=== PATIENT | female | born 1965 | race Caucasian/White ===

== ENCOUNTER → 2016-11-16 | Day surgery (SDC) | payer BC ==
[2016-11-16] VITALS (7 sets, daily range): BP systolic 103–113; BP diastolic 59–77
[~2016-11-16] VITALS: Ht 152.4 cm; Wt 52.2 kg
[~2016-11-16] MED LIST: FISH OIL CAP1000 MG ORAL; GINKGO BILOBA60 M1 PO; GLUCOSAMIN-CHO1 EAC1 PO; Hydromorphone 0.5mg/0.5ml inj IVP PRN; Ketorolac 30mg Inj IV PRN; Lidocaine 1% MPF 10mg/ml 5ml ONE; MAGNESIUM500 MG PO; Norco 5mg/325mg tab ORAL PRN; Propofol 10mg/ml 20ml IV ONE; TURMERIC500 MG PO; VITAMIN B122500 MCG PO; fentaNYL 100 mcg/2 mL IV PRN
--- NOTE | 2016-11-16 08:11 | Short Stay Surgery H&P ---
History of Present Illness History of Present Illness Chief Complaint see paper H&P HPI Neris Campbell is a 51 year old female who was admitted on for Colon Screening, Anemia Patient History Allergies: Coded Allergies: CODEINE (Verified Adverse Reaction, Severe, 11/15/16) NAUSEA PAST MEDICAL HISTORY: Past Surgeries: Social History: Medication History Scheduled Fish Oil (Fish Oil 1,000 mg Capsule), 1,000 MG ORAL DAILY, (Reported) Ginkgo Biloba (Ginkgo Biloba), 60 MG PO DAILY, (Reported) Gluc/Wilfredo-Msm#2/C/D3/Bjorn/Born (Xtvidjmvvc-Ekbnmhyekfd-Bpz Tab), 1 EACH PO DAILY , (Reported) Magnesium Oxide (Magnesium), 500 MG PO DA, (Reported) Turmeric Root Extract (Turmeric), 300 MG PO DAILY, (Reported) Miscellaneous Medications Cyanocobalamin (Vitamin B-12) (Vitamin B12), 2,500 MCG PO, (Reported) Physical Exam Vital Signs Last Vital Signs Date Time Temp Pulse Resp B/P Pulse Ox O2 Delivery O2 Flow Rate FiO2 11/16/16 07:27 97.8 67 18 110/59 98 Room Air Plan Attestation Are the patient's medical conditions optimized for surgery? CHRISSIE VILLELA Nov 16, 2016 08:11
--- NOTE | 2016-11-16 08:11 | Pre-Procedure Note/Attestation ---
Pre-Procedure Note/Attestation Complete Prior to Procedure Planned Procedure: not applicable Procedure Narrative: EGD/Colon Indications for Procedure Pre-Operative Diagnosis: abd pain, anemia, diarrhea, incontinence Attestation I attest that I discussed the nature of the procedure; its benefits; risks and complications; and alternatives (and the risks and benefits of such alternatives ), prior to the procedure, with the patient (or the patient's legal sales support representative). I attest that, if there was a reasonable possibility of needing a blood transfusion, the patient (or the patient's legal sales support representative) was given the [facility] standardized written summary, pursuant to the Bradford Prichard Blood Safety Act ([place] Health and Safety Code # 1645, as amended). I attest that I re-evaluated the patient just prior to the surgery and that there has been no change in the patient's H&P, except as documented below: CHRISSIE VILLELA Nov 16, 2016 08:11
--- NOTE | 2016-11-16 08:32 | Anethesia Preoperative Eval ---
Anesthesia Pre-op PMH/ROS General Date of Evaluation: Nov 16, 2016 Time of Evaluation: 08:00 Anesthesiologist: daphne ASA Score: ASA 2 Mallampati Score Class I : Soft palate, uvula, fauces, pillars visible Class II: Soft palate, uvula, fauces visible Class III: Soft palate, base of uvula visible Class IV: Only hard plate visible Mallampati Classification: Class II Surgeon: Daphne Diagnosis: Screening Surgical Procedure: EGD/Colon Anesthesia History: none Family History: no anesthesia problems Allergies: Coded Allergies: CODEINE (Verified Adverse Reaction, Severe, 11/15/16) NAUSEA Medications: see eMAR Past Medical History Cardiovascular: Denies: CAD, HTN, [place], arrhythmia, other, valve dz Pulmonary: Denies: COPD, [place], asthma, other Gastrointestinal/Genitourinary: Denies: CRI, ESRD, GERD, other Neurologic/Psychiatric: Denies: CVA, TIA, dementia, depression/anxiety, other Endocrine: Denies: DM, hypothyroidism, other, steroids HEENT: Denies: PO[place] IRA (L), PO[place] IRA (R), cataract (L), cataract (R), glaucoma, other Hematology/Immune: Denies: DVT, anemia, bleeding disorder, other Musculoskeletal/Integumentary: Denies: DDD, DJD, OA, RA, edema, other Anesthesia Pre-op Phys. Exam Physician Exam Last Vital Signs Date Time Temp Pulse Resp B/P Pulse Ox O2 Delivery O2 Flow Rate FiO2 11/16/16 07:27 97.8 67 18 110/59 98 Room Air Airway Exam Mallampati Score: Class II MO: full ROM: full ADRIANE BUTTS M.D. Nov 16, 2016 08:32
--- NOTE | 2016-11-16 08:57 | Endoscopy Procedure Note ---
Endoscopy Procedure Note Indication for Procedure: anemia, diarrhea Procedures Performed: EGD, colonoscopy Operative Findings/Diagnosis: ? mild rectal edema/erthema Specimen: yes Pt Tolerated Procedure Well: Yes Estimated Blood Loss: none Anesthesia: MAC Medication Given: see anesthesia record Implant(s) used?: No 50 yrs or older w/o bx or poly: Not Applicable 10yrs. F/U not recommended: Not Applicable If not recommended, why?: CHRISSIE VILLELA Nov 16, 2016 08:57
--- NOTE | 2016-11-16 08:58 | Brief Operative Note ---
Immediate Post Operative Note Operative Note Chief Complaint: anemia, diarrhea Pre-op Diagnosis: abd pain, anemia, diarrhea, incontinence Procedure: EGD b, Colon B Post-op Diagnosis: ? mild rectal erythema/edema - martínez bx Surgeon: patricia Anesthesiologist: Shayy Anesthesia: MAC, moderate sedation Specimen: yes Complications: none Condition: stable Estimated Blood Loss: none Drains: none Implant(s) used?: No CHRISSIE VILLELA Nov 16, 2016 08:58
--- NOTE | 2016-11-16 09:02 | Immediate Post-Op Evaluation ---
Immediate Post-Op Evalulation Immediate Post-Op Evalulation Procedure: EGD/Colonmoscopy Date of Evaluation: Nov 16, 2016 Time of Evaluation: 09:02 IV Fluids: 500 Blood Products: 0 Estimated Blood Loss: 0 Urinary Output: 0 Blood Pressure Systolic: 120 Blood Pressure Diastolic: 75 Pulse Rate: 80 Respiratory Rate: 20 O2 Sat by Pulse Oximetry: 99 Temperature (Fahrenheit): 98 Pain Score (1-10): 1 Nausea: No Vomiting: No Complications NA Patient Status: awake Hydration Status: adequate Given Within 1 Hr of Incision: ADRIANE Mantilla M.D. Nov 16, 2016 09:02
--- NOTE | 2016-11-16 09:03 | 48 Hour Post Anesthesia Eval ---
Post Anesthesia Evaluation Procedure: EGD/Colonmoscopy Date of Evaluation: Nov 16, 2016 Time of Evaluation: 10:05 Blood Pressure Systolic: 120 0: 70 Pulse Rate: 80 Respiratory Rate: 20 Temperature (Fahrenheit): 98 O2 Sat by Pulse Oximetry: 99 Airway: patent Nausea: No Vomiting: No Pain Intensity: 1 Hydration Status: adequate Cardiopulmonary Status: stable Mental Status/LOC: patient returned to baseline Follow-up Care/Observations: na Post-Anesthesia Complications: na Follow-up care needed: N/A ADRIANE BUTTS M.D. Nov 16, 2016 09:03
--- NOTE | 2016-11-17 03:37 | Operative Note - Dictated ---
DATE OF OPERATION: 11/16/2016 DATE OF PROCEDURE: 11/16/2016. PROCEDURE: Upper gastrointestinal endoscopy with biopsy as well as colonoscopy with biopsy. SURGEON: Avel Lam M.D. ANESTHESIA: Please see the separate anesthesiologist notes for details. PRE-ENDOSCOPIC DIAGNOSES: 1. Iron deficiency anemia. 2. Screening colonoscopy. 3. Irregular bowel habits. POST-ENDOSCOPIC DIAGNOSES: 1. Normal upper endoscopy, status post biopsy of the duodenum and the antrum. 2. Mild loss of mucosal vascularity of the rectum of unclear significance, status post random biopsy of the rectum. 3. Otherwise normal colonoscopy, status post random biopsy of the left colon. 4. Normal terminal ileum. PROCEDURE: The procedure, its risks, indications, alternatives, and possible complications were explained to the patient and informed consent was obtained. The patient was then sedated and diagnostic upper endoscope was introduced through the oropharynx and advanced to the duodenum. The endoscope was gradually withdrawn. The mucosa examined carefully. The colonoscope was introduced in the rectum and advanced to the terminal ileum without difficulty. The mucosa examined carefully. The examination was notable for above findings. The colonoscope was removed. The patient was sent to recovery in good condition. COMPLICATIONS: None. RECOMMENDATIONS: 1. Follow up biopsy results. 2. Outpatient followup. Thank you for asking me to participate in the care of this patient. Avel Lam M.D. DR: DOREEN JOB#: [id number] CC: Dawson Millan M.D.; Fax#: [phone] Lam M.D. ; Fax#: [phone]
== END | disposition home or self-care (01) ==
LOC: GAS 07:03
DX: Z12.11 Encounter for screening for malignant neoplasm of colon (principal); R19.4 Change in bowel habit; D50.9 Iron deficiency anemia, unspecified; K29.50 Unspecified chronic gastritis without bleeding; E78.00 Pure hypercholesterolemia, unspecified; Z88.5 Allergy status to narcotic agent
CPT/HCPCS: 43239; 45380; J2704; 94003; 94150

== ENCOUNTER 2017-10-12 14:45 | Outpatient (CLI) | payer BC ==
[2017-10-12 14:20] VITALS: BP 126/68
[~2017-10-12 14:45] MED LIST changes: -Hydromorphone 0.5mg/0.5ml inj IVP PRN; -Ketorolac 30mg Inj IV PRN; -Lidocaine 1% MPF 10mg/ml 5ml ONE; -Norco 5mg/325mg tab ORAL PRN; -Propofol 10mg/ml 20ml IV ONE; -fentaNYL 100 mcg/2 mL IV PRN
--- NOTE | 2017-10-12 15:46 | GI Initial Consult Note ---
History of Present Illness General Date patient seen: Oct 12, 2017 Time patient seen: 15:35 Referring physician: RON Reason for Consultation: ABDOMINAL PAIN Present Illness HPI 52 year old female referred by Dr. Lieberman for evaluation of abdominal pain x 1 week described as tight, stabbing with no burning sensation. Epigastric tenderness and pain. In addition, c/o of diarrhea with occasional incontinence 2-3x daily. She has decreased appetite but contributes it to her personal problems and has difficulty swallowing solid food. The patient had an EGD/ Colonoscopy this past October, see report below. DATE OF PROCEDURE: 11/16/2016. PROCEDURE: Upper gastrointestinal endoscopy with biopsy as well as colonoscopy with biopsy. SURGEON: Avel Lam M.D. POST-ENDOSCOPIC DIAGNOSES: 1. Normal upper endoscopy, status post biopsy of the duodenum and the antrum. 2. Mild loss of mucosal vascularity of the rectum of unclear significance, status post random biopsy of the rectum. 3. Otherwise normal colonoscopy, status post random biopsy of the left colon. 4. Normal terminal ileum. Home Meds Reported Medications Gluc/Wilfredo-Msm#2/C/D3/Bjorn/Born ([id number] TAB) 1 Each Tablet, 1 EACH PO DAILY, TAB 11/16/16 Ginkgo Biloba (GINKGO BILOBA) 60 Mg Tablet, 60 MG PO DAILY, TAB 11/16/16 Turmeric Root Extract (TURMERIC) 500 Mg Capsule, 300 MG PO DAILY, CAP 11/16/16 Cyanocobalamin (Vitamin B-12) (Vitamin B12) 2,500 Mcg Tablet, 2500 MCG PO, TAB 11/15/16 Magnesium Oxide (MAGNESIUM) 500 Mg Capsule, 500 MG PO DA, CAP 11/15/16 Fish Oil (Fish Oil 1,000 mg Capsule) 1 Each Capsule, 1000 MG ORAL DAILY, CAP 11/15/16 Med list reviewed/reconciled: Yes Allergies: Coded Allergies: CODEINE (Verified Adverse Reaction, Severe, 11/15/16) NAUSEA Patient History History Provided By: Patient, Medical Record PMH Narrative Anxiety Iron deficiency anemia Family History Narrative denies Social History: Reports: alcohol use - social, Denies: smoking, drug use, other Review of Systems All Other Systems: negative except mentioned in HPI Physical Exam T 98.3 BP 126/68 P 81 95 RA WT 112.6 lbs (loss 10 lbs this past month) HT 5'0 Sp02 EP Interpretation: reviewed, normal General Appearance: well appearing, no apparent distress, alert Head: normocephalic EENT: PERRL/EOMI, normal ENT inspection Neck: supple Respiratory: normal breath sounds, no respiratory distress Cardiovascular: normal rate Gastrointestinal: normal inspection, non tender, soft, normal bowel sounds, non -distended Rectal: deferred Genitourinary: no CVA tenderness Musculoskeletal: normal inspection, back normal Neurologic: normal inspection, alert, oriented x3, responsive Psychiatric: normal inspection, judgement/insight normal, memory normal Skin: normal inspection, normal color, no rash, warm/dry, palpation normal, well hydrated Lymphatic: normal inspection, no adenopathy GI: Plan Problems: (1) Dysphagia (2) Anemia (3) Iron deficiency (4) Diarrhea (5) Abdominal pain (6) Appetite loss Plan EGD/colonoscopy from 10/2016 reviewed. ordered Celiac panel, amylase, lipase, CBC, CMP Rx omeprazole 40mg PO daily RTC after lab draws Seen with Dr. Ruffin. Thank you for this patient referral. Miryam Hernadez N.P. Oct 12, 2017 15:46
== END 2017-10-12 15:15 | disposition home or self-care (01) ==
LOC: PAN 14:45
DX: R10.9 Unspecified abdominal pain (principal); R13.10 Dysphagia, unspecified; D50.9 Iron deficiency anemia, unspecified; R19.7 Diarrhea, unspecified; Z88.6 Allergy status to analgesic agent
CPT/HCPCS: 99212